=== PATIENT | female | born 1955 | race Caucasian/White ===

== ENCOUNTER 2022-12-19 10:37 | Outpatient (RCR) | payer MEDICARE | END 2022-12-26 | LOC: RESP 10:37 | PROVIDERS: ATTEND Internal Medicine | DX: J44.9 Chronic obstructive pulmonary disease, unspecified (principal) | CPT/HCPCS: 94799 ==

== ENCOUNTER 2023-02-28 14:23 | Outpatient (RCR) | payer MEDICARE | END 2023-03-28 | LOC: RESP 14:23 | PROVIDERS: ATTEND Internal Medicine | DX: J44.9 Chronic obstructive pulmonary disease, unspecified (principal) | CPT/HCPCS: 94626 ×7; G0238 ×7 ==

== ENCOUNTER 2023-03-29 09:01 | Outpatient (RCR) | payer MEDICARE | END 2023-04-27 | LOC: RESP 09:01 | PROVIDERS: ATTEND Internal Medicine | DX: J44.9 Chronic obstructive pulmonary disease, unspecified (principal) | CPT/HCPCS: 94626 ×7; G0238 ×7 ==